=== PATIENT | male | born 1955 | race American Indian/Alaskan Native ===

== ENCOUNTER 2020-12-20 10:05 | Outpatient (CLI) | payer MEDICARE ==
--- NOTE | 2020-12-20 20:14 | Ultrasound Report ---
Renal ultrasound INDICATION: Abnormal labs FINDINGS: Right kidney measures 11.5 x 4.5 x 5.6 cm. Left kidney 10.5 x 5.8 x 4.8 cm. There is an ech ogenic density in bilateral kidneys could represent renal calcifications possibly vascular calcificat ions. Hypoechoic area in the left kidney could represent a cyst measuring 1.8 cm. Signer Name: Rashad Wang MD Signed: 12/20/2020 8:09 PM Workstation Name: [id number]
== END 2020-12-20 10:06 | disposition home or self-care (01) ==
LOC: US 10:05
PROVIDERS: ATTEND Internal Medicine Cardiovascular Disease
DX: N18.9 Chronic kidney disease, unspecified (principal)
CPT/HCPCS: 76770